=== PATIENT | male | born 1985 | race African-American/Black ===

== ENCOUNTER 2019-10-27 18:15 | Emergency (ER) | payer SELFPAY ==
[2019-10-27 19:01] LABS: Urine Blood 1+ (NEG); Urine Glucose NEGATIVE (NEG); Urine Protein 1+ (NEG); Urine Specific Gravity 1.025 (1.005-1.030)
[2019-10-27 19:43] LABS: Urine Bacteria 20-50 /HPF (NONE SEEN); Urine Culture Reflex Order REFLEXED; Urine RBC 20-50 /HPF (NONE SEEN)
--- NOTE | 2019-10-27 19:52 | ER ---
Nurse's Notes [facility] Name: Ruddy Hammonds Age: 34 yrs Sex: Male : 1985 Arrival Date: 10/27/2019 Time: 18:17 Bed 20 Private MD: Diagnosis: Urinary tract infection, site not specified Presentation: 10/26 18:19 Chief complaint: Patient states: Cough, congestion and fever since Friday. Coronavirus ca1 screen: The patient has NOT traveled to a country currently being monitored by the [facility] within the last 14 days. The patient has NOT had contact with any known and/or suspected case of coronavirus. Ebola Screen: Patient negative for fever greater than or equal to 101.5 degrees Fahrenheit, and additional compatible Ebola Virus Disease symptoms Patient denies exposure to infectious person. Patient denies travel to an Ebola-affected area in the 21 days before illness onset. No symptoms or risks identified at this time. Initial Sepsis Screen: Does the patient meet any 2 criteria? No. Patient's initial sepsis screen is negative. Does the patient have a suspected source of infection? No. Patient's initial sepsis screen is negative. Risk Assessment: Do you want to hurt yourself or someone else? Patient reports no desire to harm self or others. Onset of symptoms was October 27, 2019. 18:19 Method Of Arrival: Ambulatory ca1 18:19 Acuity: DAYO 4 ca1 Historical: - Allergies: 18:21 No Known Allergies; ca1 - Home Meds: 18:21 None [Active]; ca1 - PMHx: 18:21 None; ca1 - PSHx: 18:21 None; ca1 - Immunization history:: Adult Immunizations up to date, Flu vaccine is not up to date. - Social history:: Smoking status: Patient reports the use of cigarette tobacco products, smokes one-half pack cigarettes per day. Screenin:45 Abuse screen: Denies threats or abuse. Denies injuries from another. Nutritional jl7 screening: No deficits noted. Tuberculosis screening: No symptoms or risk factors identified. Fall Risk None identified. Assessment: 18:45 General: Appears in no apparent distress. uncomfortable, Behavior is calm, cooperative. jl7 Pain: Denies pain. Neuro: Level of Consciousness is awake, alert, obeys commands, Oriented to person, place, time, situation. Cardiovascular: Patient's skin is warm and dry. Respiratory: Airway is patent Respiratory effort is even, unlabored, Respiratory pattern is regular, symmetrical. : Reports pain with urination. Derm: Skin is pink, warm \T\ dry. 19:18 General: Appears in no apparent distress. Behavior is calm, cooperative. Pain: ea Complains of pain in headache. Neuro: Level of Consciousness is awake, alert, obeys commands, Oriented to person, place, time, situation. Cardiovascular: Patient's skin is warm and dry. Respiratory: Airway is patent Respiratory effort is even, unlabored, Respiratory pattern is regular, symmetrical. Derm: Skin is pink, warm \T\ dry. Vital Signs: 18:19 BP 119 / 75; Pulse 97; Resp 16 S; Temp 100.2(TE); Pulse Ox 96% on R/A; Weight 83.91 kg ca1 (R); Height 5 ft. 10 in. (177.80 cm) (R); 19:29 BP 127 / 67; Pulse 81; Resp 18; Temp 100.4(O); Pulse Ox 100% ; ea 20:00 BP 123 / 75; Pulse 78; Resp 18; Temp 99.0; Pulse Ox 100% ; ea 18:19 Body Mass Index 26.54 (83.91 kg, 177.80 cm) ca1 ED Course: 18:17 Patient arrived in ED. mr 18:20 Triage completed. ca1 18:21 Arm band placed on right wrist. ca1 18:31 [facility] Boy[facility]. kb 18:31 Hugo Kendall MD is Attending Physician. kb 18:45 Patient has correct armband on for positive identification. Bed in low position. Call jl7 light in reach. Side rails up X 1. 18:45 Flu and/or RSV swab sent to lab. Strep swab sent to lab. jl7 18:49 Urine collected: clean catch specimen, clear. 3 19:22 Cherelle Huynh, MARTÍN is Primary Nurse. ea 19:44 Urine Microscopic Only Sent. dm5 20:07 No provider procedures requiring assistance completed. Patient did not have IV access ea during this emergency room visit. Administered Medications: 19:30 Drug: Tylenol 650 mg Route: PO; ea 20:00 Follow up: Response: No adverse reaction ea 20:06 Drug: Rocephin (cefTRIAXone) 250 mg Route: IM; Site: right gluteus; ea 20:13 Follow up: Response: No adverse reaction ea 20:06 Drug: Zithromax 1 grams Route: PO; ea 20:13 Follow up: Response: No adverse reaction ea 20:06 Drug: Cipro 500 mg Route: PO; ea 20:14 Follow up: Response: No adverse reaction ea Outcome: 19:51 Discharge ordered by MD. mays 20:11 Discharged to home ambulatory, with significant other. ea 20:11 Condition: stable 20:11 Discharge instructions given to patient, Instructed on discharge instructions, Demonstrated understanding of instructions, follow-up care. 20:12 Patient left the ED. ea Addendum: 10/29/2019 07:32 Addendum: Culture Results: Positive urine culture. No further action required. Bacteria e b sensitive to prescribed antibiotic. Signatures: Tootie Boykin, ICE CARVER-C ICE CARVER-CkMaria Eugenia Shaw, RN RN dm5 Tiana BarreraalLuciana RN RN jl7 Mai Chu 3 Cherelle Huynh RN Madison Tavarez ea, Cheryl RN RN ca1 Corrections: (The following items were deleted from the chart) 10/26 20:11 19:43 Condition: stable karly ea 20: 19:43 Discharge instructions given to patient, Instructed on discharge instructions, ea Demonstrated understanding of instructions, follow-up care, ea 20:11 19:43 Discharged to home ambulatory, with significant other, karly brandt
--- NOTE | 2019-10-27 19:52 | EDPHYS ---
Physician Documentation [facility] Name: Ruddy Hammonds Age: 34 yrs Sex: Male : 1985 Arrival Date: 10/27/2019 Time: 18:17 Bed 20 Private MD: ED Physician Hugo Kendall HPI: 10/26 20:08 This 34 yrs old Black Male presents to ER via Ambulatory with complaints of Flu kb Symptoms. 20:08 The patient or guardian reports cough, that is intermittent, described as mild, with no kb sputum, flu symptoms, low-grade fever, myalgias. Onset: The symptoms/episode began/occurred 3 day(s) ago. Severity of symptoms: At their worst the symptoms were moderate, in the emergency department the symptoms are unchanged. Modifying factors: The symptoms are alleviated by nothing, the symptoms are aggravated by nothing. Associated signs and symptoms: The patient has no apparent associated signs or symptoms. The patient has not experienced similar symptoms in the past. The patient has not recently seen a physician. Pt reports flu symptoms (cough, congestion, fever, chills, malaise) and dysuria since Friday. Historical: - Allergies: 18:21 No Known Allergies; ca1 - Home Meds: 18:21 None [Active]; ca1 - PMHx: 18:21 None; ca1 - PSHx: 18:21 None; ca1 - Immunization history:: Adult Immunizations up to date, Flu vaccine is not up to date. - Social history:: Smoking status: Patient reports the use of cigarette tobacco products, smokes one-half pack cigarettes per day. ROS: 20:05 Neck: Negative for injury, pain, and swelling, Cardiovascular: Negative for chest pain, kb palpitations, and edema, Abdomen/GI: Negative for abdominal pain, nausea, vomiting, diarrhea, and constipation, Back: Negative for injury and pain, MS/Extremity: Negative for injury and deformity, Skin: Negative for injury, rash, and discoloration, Neuro: Negative for headache, weakness, numbness, tingling, and seizure. 20:05 Constitutional: Positive for body aches, chills, fatigue, fever, malaise. 20:05 ENT: Positive for rhinorrhea, sinus congestion. 20:05 Respiratory: Positive for cough, Negative for dyspnea on exertion, hemoptysis, orthopnea, pleurisy, shortness of breath, sputum production, wheezing. 20:05 : Positive for burning with urination. Exam: 20:05 Constitutional: This is a well developed, well nourished patient who is awake, alert, kb and in no acute distress. Head/Face: Normocephalic, atraumatic. ENT: Nares patent. No nasal discharge, no septal abnormalities noted. Tympanic membranes are normal and external auditory canals are clear. Oropharynx with no redness, swelling, or masses, exudates, or evidence of obstruction, uvula midline. Mucous membranes moist. Neck: Trachea midline, no thyromegaly or masses palpated, and no cervical lymphadenopathy. Supple, full range of motion without nuchal rigidity, or vertebral point tenderness. No Meningismus. Chest/axilla: Normal chest wall appearance and motion. Nontender with no deformity. No lesions are appreciated. Cardiovascular: Regular rate and rhythm with a normal S1 and S2. No gallops, murmurs, or rubs. Normal PMI, no JVD. No pulse deficits. Respiratory: Lungs have equal breath sounds bilaterally, clear to auscultation and percussion. No rales, rhonchi or wheezes noted. No increased work of breathing, no retractions or nasal flaring. Abdomen/GI: Soft, non-tender, with normal bowel sounds. No distension or tympany. No guarding or rebound. No evidence of tenderness throughout. Skin: Warm, dry with normal turgor. Normal color with no rashes, no lesions, and no evidence of cellulitis. MS/ Extremity: Pulses equal, no cyanosis. Neurovascular intact. Full, normal range of motion. Neuro: Awake and alert, GCS 15, oriented to person, place, time, and situation. Cranial nerves II-XII grossly intact. Motor strength 5/5 in all extremities. Sensory grossly intact. Cerebellar exam normal. Normal gait. Vital Signs: 18:19 BP 119 / 75; Pulse 97; Resp 16 S; Temp 100.2(TE); Pulse Ox 96% on R/A; Weight 83.91 kg ca1 (R); Height 5 ft. 10 in. (177.80 cm) (R); 19:29 BP 127 / 67; Pulse 81; Resp 18; Temp 100.4(O); Pulse Ox 100% ; ea 20:00 BP 123 / 75; Pulse 78; Resp 18; Temp 99.0; Pulse Ox 100% ; ea 18:19 Body Mass Index 26.54 (83.91 kg, 177.80 cm) ca1 MDM: 18:31 Patient medically screened. kb 20:05 Data reviewed: vital signs, nurses notes. Data interpreted: Pulse oximetry: on room air kb is 100 %. Interpretation: normal. Counseling: I had a detailed discussion with the patient and/or guardian regarding: the historical points, exam findings, and any diagnostic results supporting the discharge/admit diagnosis, lab results, the need for outpatient follow up, a family practitioner, to return to the emergency department if symptoms worsen or persist or if there are any questions or concerns that arise at home. 10/26 18:31 Order name: Flu; Complete Time: 19:12 kb 10/26 18:31 Order name: Strep; Complete Time: 18:55 kb 10/26 18:46 Order name: Urine Dipstick--Ancillary (enter results); Complete Time: 19:03 bd 10/26 18:46 Order name: Urine Microscopic Only; Complete Time: 19:47 bd 10/26 18:46 Order name: Urine Microscopic Only dh3 10/26 18:55 Order name: Throat Culture EDMS 10/26 19:54 Order name: Urine Culture EDMS Administered Medications: 19:30 Drug: Tylenol 650 mg Route: PO; ea 20:00 Follow up: Response: No adverse reaction ea 20:06 Drug: Rocephin (cefTRIAXone) 250 mg Route: IM; Site: right gluteus; ea 20:13 Follow up: Response: No adverse reaction ea 20:06 Drug: Zithromax 1 grams Route: PO; ea 20:13 Follow up: Response: No adverse reaction ea 20:06 Drug: Cipro 500 mg Route: PO; ea 20:14 Follow up: Response: No adverse reaction ea Disposition: 10/27 10:48 Co-signature as Attending Physician, Hugo Kendall MD I agree with the assessment and kdr plan of care. Disposition: 10/27/19 19:51 Discharged to Home. Impression: Urinary tract infection, site not specified. - Condition is Stable. - Discharge Instructions: Urinary Tract Infection, Adult, [id number]. - Prescriptions for Cipro 500 mg Oral Tablet - take 1 tablet by ORAL route every 12 hours for 7 days; 14 tablet. - Medication Reconciliation Form, Thank You Letter, Antibiotic Education, Prescription Opioid Use, Work release form form. - Follow up: Emergency Department; When: As needed; Reason: Worsening of condition. Follow up: Private Physician; When: 2 - 3 days; Reason: Recheck today's complaints, Continuance of care, Re-evaluation by your physician. Signatures: Dispatcher [employer] EDFL Tootie Boykin, HABILITATION TRAINING SPECIALIST-C HABILITATION TRAINING SPECIALIST-Hugo Ríos MD MD kdr Antunez, Elena, RN RN ea Acob, Cheryl RN RN ca1 Corrections: (The following items were deleted from the chart) 10/26 20:12 19:51 10/27/2019 19:51 Discharged to Home. Impression: Urinary tract infection, site ea not specified. Condition is Stable. Forms are Medication Reconciliation Form, Thank You Letter, Antibiotic Education, Prescription Opioid Use. Follow up: Emergency Department; When: As needed; Reason: Worsening of condition. Follow up: Private Physician; When: 2 - 3 days; Reason: Recheck today's complaints, Continuance of care, Re-evaluation by your physician. kb
[2019-10-27] MEDS ORDERED: AZITHROMYCIN 250 MG TAB ONE (20:02)
[2019-10-27] MEDS ORDERED: CIPROFLOXACIN HCL 500 MG TAB ONE (20:02)
[2019-10-27] MEDS ORDERED: CEFTRIAXONE 250 MG/VIAL ONE (20:02)
[2019-10-27 20:26] VITALS: O2SAT 100
[2019-10-27 20:28] VITALS: BP 123/75; TEMP 99
== END 2019-10-27 20:12 | disposition home or self-care (01) ==
LOC: ER 18:15
DX: N39.0 Urinary tract infection, site not specified (principal)
CPT/HCPCS: 81003; 81015; 87070; 87077; 87081; 87086; 87088; 87186; 87804; 96372; 99283; J0696

== ENCOUNTER 2020-07-13 14:11 | Emergency (ER) | payer SELFPAY ==
--- NOTE | 2020-07-13 14:45 | ER ---
Nurse's Notes [facility] Name: Ruddy Hammonds Age: 35 yrs Sex: Male : 1985 Arrival Date: 07/13/2020 Time: 14:13 Bed Waiting Private MD: Diagnosis: Conjunctivitis Presentation: 07/13 14:41 Chief complaint: Patient states: i think i have pink eye in both of my eyes and josafat iw been dealing with it since Friday. Coronavirus screen: Client denies travel out of the [place] in the last 14 days. Ebola Screen: No symptoms or risks identified at this time. 14:41 Method Of Arrival: Ambulatory iw Vital Signs: 14:43 BP 110 / 75; Pulse 73; Resp 18; Temp 98.6(TE); Pulse Ox 99% on R/A; Weight 81.65 kg iw (R); Height 5 ft. 10 in. (177.80 cm); Pain 0/10; 14:43 Body Mass Index 25.83 (81.65 kg, 177.80 cm) iw ED Course: 14:13 Patient arrived in ED. as 14:42 Tootie Boykin FNP-C is PHCP. kb 14:42 Ruddy Hirsch MD is Attending Physician. kb 14:43 Arm band placed on left wrist. iw Administered Medications: No medications were administered Outcome: 14:44 Discharge ordered by . kb 14:48 Patient left the ED. iw Signatures: Tootie Boykin FNP-C FNP-Ckb Martinez, Amelia as Libby Miller, RN RN iw
--- NOTE | 2020-07-13 14:45 | EDPHYS ---
Physician Documentation [facility] Name: Ruddy Hammonds Age: 35 yrs Sex: Male : 1985 Arrival Date: 07/13/2020 Time: 14:13 Bed Waiting Private MD: ED Physician TorreyRanjanay HPI: 07/13 14:52 This 35 yrs old Black Male presents to ER via Ambulatory with complaints of Eye Problem.kb 14:52 The patient is experiencing matting or discharge, redness, The patient sustained None. kb to both eyes, caused by an unknown mechanism. Onset: The symptoms/episode began/occurred 5 day(s) ago. Duration: the symptoms are continuous. Aggravated by nothing. Alleviated by nothing. Associated signs and symptoms: Pertinent positives: None. Patient does not utilize any form of vision correction. Severity of symptoms: At their worst the symptoms were moderate in the emergency department the symptoms are unchanged. The patient has not experienced similar symptoms in the past. The patient has not recently seen a physician. Pt reports he started having redness and drainage from one eye on Friday and it spread to the other. Continuously getting worse. ROS: 14:51 Constitutional: Negative for fever, chills, and weight loss, ENT: Negative for injury, kb pain, and discharge, Respiratory: Negative for shortness of breath, cough, wheezing, and pleuritic chest pain, Skin: Negative for injury, rash, and discoloration, Neuro: Negative for headache, weakness, numbness, tingling, and seizure. 14:51 Eyes: Positive for discharge, itching, redness. Exam: 14:51 Constitutional: This is a well developed, well nourished patient who is awake, alert, kb and in no acute distress. Head/Face: Normocephalic, atraumatic. Skin: Warm, dry with normal turgor. Normal color with no rashes, no lesions, and no evidence of cellulitis. MS/ Extremity: Pulses equal, no cyanosis. Neurovascular intact. Full, normal range of motion. Neuro: Awake and alert, GCS 15, oriented to person, place, time, and situation. Cranial nerves II-XII grossly intact. Motor strength 5/5 in all extremities. Sensory grossly intact. Cerebellar exam normal. Normal gait. 14:51 Eyes: Periorbital structures: appear normal, Pupils: equal, round, and reactive to light and accomodation, Extraocular movements: intact throughout, Conjunctiva: exudate, bilaterally, injected, bilaterally. 14:51 Respiratory: mild respiratory distress is noted, Respirations: normal. Vital Signs: 14:43 BP 110 / 75; Pulse 73; Resp 18; Temp 98.6(TE); Pulse Ox 99% on R/A; Weight 81.65 kg iw (R); Height 5 ft. 10 in. (177.80 cm); Pain 0/10; 14:43 Body Mass Index 25.83 (81.65 kg, 177.80 cm) iw MDM: 14:44 Patient medically screened. kb 14:51 Data reviewed: vital signs, nurses notes. Data interpreted: Pulse oximetry: on room air kb is 99 %. Interpretation: normal. Counseling: I had a detailed discussion with the patient and/or guardian regarding: the historical points, exam findings, and any diagnostic results supporting the discharge/admit diagnosis, the need for outpatient follow up, a family practitioner, to return to the emergency department if symptoms worsen or persist or if there are any questions or concerns that arise at home. Administered Medications: No medications were administered Disposition: 15:11 Co-signature as Attending Physician, Ruddy Hirsch MD I agree with the assessment and demetrius plan of care. Disposition: 07/13/20 14:44 Discharged to Home. Impression: Conjunctivitis. - Condition is Stable. - Discharge Instructions: Bacterial Conjunctivitis, [id number]. - Prescriptions for Erythromycin 5 mg/gram (0.5 %) Ophthalmic Ointment - apply 1 centimeter by OPHTHALMIC route 2-3 times daily for 7 days; 1 tube. - Medication Reconciliation Form, Thank You Letter, Antibiotic Education, Prescription Opioid Use form. - Follow up: Emergency Department; When: As needed; Reason: Trouble breathing. Follow up: Private Physician; When: 2 - 3 days; Reason: Recheck today's complaints, Continuance of care, Re-evaluation by your physician. Signatures: Tootie Boykin, YANETH-C YANETH-Ruddy Daniels MD MD cha Williams, Irene, MARTÍN RN iw Corrections: (The following items were deleted from the chart) 14:48 14:44 07/13/2020 14:44 Discharged to Home. Impression: Conjunctivitis. Condition is iw Stable. Forms are Medication Reconciliation Form, Thank You Letter, Antibiotic Education, Prescription Opioid Use. Follow up: Emergency Department; When: As needed; Reason: Trouble breathing. Follow up: Private Physician; When: 2 - 3 days; Reason: Recheck today's complaints, Continuance of care, Re-evaluation by your physician. kb
[2020-07-13 23:38] VITALS: BP 110/75; TEMP 98.6; O2SAT 99
== END 2020-07-13 14:48 | disposition home or self-care (01) ==
LOC: ER 14:11
DX: H10.9 Unspecified conjunctivitis (principal)
CPT/HCPCS: 99281